=== PATIENT | male | born 1995 | race Two or more races ===

== ENCOUNTER 2025-04-06 20:02 | Emergency (ER) | payer MEDICAID, SELFPAY ==
[2025-04-06 20:03] VITALS: BMI 33.2
[2025-04-06 20:28] VITALS: BP 154/73; PULSE 92; RESP 18; TEMP 37.1; O2SAT 97
--- NOTE | 2025-04-06 21:01 | PD.EDABDPN ---
ED Abdominal Pain RME/HPI General Chief Complaint: Abdominal Pain Stated complaint: UPPER ABDOMINAL PAIN, DIARRHEA Time seen by provider: 04/06/25 20:29 Arrival date/time: 04/06/25 20:02 Source: patient Mode of arrival: ambulatory Limitations: no limitations RME / HPI RME / HPI narrative: 29-year-old male presents to the ED with a 3-day complaint of epigastric and right upper quadrant abdominal pain with associated nausea and diarrhea. Nothing makes the pain worse, Pepto-Bismol helps minimally. He denies any fever or chills, upper respiratory complaints, vomiting or constipation. He denies any association with food. No others are ill with similar symptoms. He denies any family history of cholecystitis. He denies any gastroesophageal reflux symptoms. Related Data Previous Rx's ?Medication ?Instructions ?Recorded bacitracin 500 unit/gram topical 1 applic topical QDAY #30 grams 11/05/23 ointment famotidine 40 mg tablet 40 mg PO QDAY #30 tabs 04/07/25 ondansetron 4 mg disintegrating 4 mg PO Q6H PRN nausea and 04/07/25 tablet vomiting #10 tabs pantoprazole 40 mg tablet,delayed 40 mg PO QDAY #30 tabs 04/07/25 release Allergies Allergy/AdvReac Type Severity Reaction Status Date / Time cefprozil Allergy Verified 04/06/25 20:06 clindamycin Allergy Verified 04/06/25 20:06 tobramycin Allergy Verified 04/06/25 20:06 Review of Systems Review of Systems Systems Reviewed: All systems reviewed, normal except as documented Past Medical History Social History SMOKING STATUS: Never smoker ED Exam Narrative Physical exam: Alert and oriented 29-year-old male, no acute distress, lungs are clear, regular rate and rhythm without murmurs, mild epigastric and right upper quadrant abdominal tenderness. No rebound or guarding. No CVA tenderness. General Limitations: Present no limitations General appearance: Present alert and in no apparent distress Course Course Course Narrative: 29-year-old male presents to the ED with a 3-day complaint of epigastric and right upper quadrant abdominal pain with associated nausea and diarrhea. Nothing makes the pain worse, Pepto-Bismol helps minimally. He denies any fever or chills, upper respiratory complaints, vomiting or constipation. He denies any association with food. No others are ill with similar symptoms. He denies any family history of cholecystitis. He denies any gastroesophageal reflux symptoms. Alert and oriented 29-year-old male, no acute distress, lungs are clear, regular rate and rhythm without murmurs, mild epigastric and right upper quadrant abdominal tenderness. No rebound or guarding. No CVA tenderness. Quality Measures none Orders Category Date Time Status NPO STAT Care 04/06/25 21:03 Completed US abdomen limited Stat Exams 04/06/25 21:03 Completed Amylase Stat Lab 04/06/25 21:16 Completed CBC Stat Lab 04/06/25 21:16 Completed Comprehensive Metabolic Panel Stat Lab 04/06/25 21:16 Completed Lipase Stat Lab 04/06/25 21:16 Completed Urinalysis Stat Lab 04/06/25 21:08 Completed Famotidine [Pepcid] Med 04/07/25 01:21 Discontinued 40 mg PO X1 ONE Lidocaine 2% Viscous [Xylocaine 2% Viscous] Med 04/06/25 21:04 Discontinued 15 ml PO X1 ONE Ondansetron Odt [Zofran Odt] Med 04/06/25 21:04 Discontinued 4 mg PO X1 ONE Ondansetron Odt [Zofran Odt] Med 04/07/25 01:21 Discontinued 4 mg PO X1 ONE Pantoprazole [Protonix] Med 04/07/25 01:21 Discontinued 40 mg PO X1 ONE mg Hyd/Al Hyd/Rasheed Susp [Maalox Susp] Med 04/06/25 21:04 Discontinued 30 ml PO X1 ONE Vital Signs Vital signs: Vital Signs Temperature 98.7 F 04/06/25 20:28 Pulse Rate 92 04/06/25 20:28 Respiratory Rate 18 04/06/25 20:28 Blood Pressure 154/73 H 04/06/25 20:28 Pulse Oximetry (%) 97 04/06/25 20:28 Oxygen Delivery Method Room Air 04/06/25 20:28 Abdominal Pain MDM MDM Narrative MDM Narrative:: 29-year-old male presents to the ED with a 3-day complaint of epigastric and right upper quadrant abdominal pain with associated nausea and diarrhea. Nothing makes the pain worse, Pepto-Bismol helps minimally. He denies any fever or chills, upper respiratory complaints, vomiting or constipation. He denies any association with food. No others are ill with similar symptoms. He denies any family history of cholecystitis. He denies any gastroesophageal reflux symptoms. Alert and oriented 29-year-old male, no acute distress, lungs are clear, regular rate and rhythm without murmurs, mild epigastric and right upper quadrant abdominal tenderness. No rebound or guarding. No CVA tenderness. Labs reveal a normal white count of 8.2, normal H&H and platelets, CMP is normal with the exception of a glucose of 118. LFTs, amylase, lipase are all normal. Urinalysis reveals a specific gravity 1.035 with no bacteria. Abdominal ultrasound: Findings: Contracted gallbladder no definite stones. Common bile duct 0.3 cm. Pancreatic head 2.6 cm. 17.8 cm liver dimension smooth contour. Normal hepatopedal portal venous flow. Patent IVC. IMPRESSION: Repeat the gallbladder portion of the study with fasting . Patient data External records reviewed:: None Clinical information provided by:: patient Social determinants that could affect healthcare access:: none Patient has the following chronic illnesses:: None How is presenting disease/condition affected by chronic disease/condition?: no chronic disease Evaluation data The following diagnostics were reviewed and interpreted by me:: lab results and radiology exam(s) Lab and/or radiology exams considered but not ordered:: N/A Interpretation Summary: Abdominal ultrasound: Findings: Contracted gallbladder no definite stones. Common bile duct 0.3 cm. Pancreatic head 2.6 cm. 17.8 cm liver dimension smooth contour. Normal hepatopedal portal venous flow. Patent IVC. IMPRESSION: Repeat the gallbladder portion of the study with fasting . Medications / Prescriptions Medications or Prescriptions considered but not ordered:: N/A Medication administrations:: Medication Administration History Discontinued Medications Al Hydrox/Mg Hydrox/Simethicone (Mg Hyd/Al Hyd/Rasheed (Maalox Reg) Susp 30 Ml Udc) 30 ml PO X1 ONE Stop: 04/06/25 21:05 Last Admin: 04/06/25 21:23 Dose: 30 ml Documented By: Famotidine (Famotidine 20 Mg Tablet) 40 mg PO X1 ONE Stop: 04/07/25 01:22 Last Admin: 04/07/25 01:33 Dose: 40 mg Documented By: INEZ Lidocaine HCl (Lidocaine Viscous 2% 15 Ml Udc) 15 ml PO X1 ONE Stop: 04/06/25 21:05 Last Admin: 04/06/25 21:23 Dose: 15 ml Documented By: Ondansetron HCl (Ondansetron Odt 4 Mg Tabrap) 4 mg PO X1 ONE; Protocol Stop: 04/06/25 21:05 Last Admin: 04/06/25 21:20 Dose: 4 mg Documented By: Ondansetron HCl (Ondansetron Odt 4 Mg Tabrap) 4 mg PO X1 ONE; Protocol Stop: 04/07/25 01:22 Last Admin: 04/07/25 01:34 Dose: 4 mg Documented By: INEZ Pantoprazole Sodium (Pantoprazole 40 Mg Tablet) 40 mg PO X1 ONE Stop: 04/07/25 01:22 Last Admin: 04/07/25 01:33 Dose: 40 mg Documented By: INEZ Maalox 30 mL and viscous lidocaine 15 mL, as well as ondansetron 4 mg p.o. given initially with good results. Prior to discharge, patient was given Pepcid 40 mg p.o., pantoprazole 40 mg p.o., and an additional dose of ondansetron 4 mg p.o. Consultations Consultation(s) initiated? (list below): No Diagnosis Differential diagnosis abdominal pain: abdominal pain, acute appendicitis, gastroenteritis, pancreatitis, small bowel obstruction and other (Cholecystitis, GERD, gastritis) Most likely diagnosis given after review of the tests above:: Gastritis, GERD Admission Indicated Admission indicated?: not indicated Explain why admission is indicated or not indicated:: Patient is stable for discharge Admission Request Was there a request for admission?: No Admission Attestation Admission request attestation: N/A Disposition Plan Disposition Plan: Discharge Discharge Attestation Discharge Attestation: The patient and all family members were given an opportunity to ask questions and understood the discharge instructions. Discharge instructions specifically effects, indications for sooner follow up or return to the emergency department, and the expected course of current diagnosis. Patient condition: Stable Discharge Plan Plan Patient Disposition: HOME (Self Care) Discharge Disposition comment: Stable and improved Prescriptions/Referrals Prescriptions/Med Rec: New pantoprazole 40 mg tablet,delayed release (DR/EC) 40 mg PO QDAY Qty: 30 0RF famotidine 40 mg tablet 40 mg PO QDAY Qty: 30 0RF ondansetron 4 mg tablet,disintegrating 4 mg PO Q6H PRN (Reason: nausea and vomiting) Qty: 10 0RF No Action bacitracin 500 unit/gram ointment 1 applic topical QDAY Qty: 30 0RF Referrals: No Primary/Family,Physician [Primary Care Provider] - In 1 week Problem List Clinical Impression: Gastritis, Abdominal pain Patient/Caregiver Discharge Instructions Education Materials: Abdominal Pain, ED Gastritis (Adult) Additional Instructions: Contact your primary care physician on Tuesday for follow-up appointment and referral for repeat ultrasound of the gallbladder. Follow-up with your primary care physician in 24 to 48 hours. Return to the ED for any new or worsening symptoms. Print Language: Bengali Stand Alone Forms: Shaniqua Award Info., Patient Portal Info Letter PA/TEMPLATE INSPECTOR Supervising Physician PA/TEMPLATE INSPECTOR Supervising Physician: Dr. Bruce
--- NOTE | 2025-04-06 21:03 | XR_ITS ---
Examination: Abdomen sonogram, Limited Date and time of exam: April 06, 2025 1004 hours INDICATIONS: Epigastric pain beginning 3 days ago Technique: Real-time caraballo scale transabdominal sonographic images of the upper abdomen obtained. Findings: Contracted gallbladder no definite stones Common bile duct 0.3 cm Pancreatic head 2.6 cm 17.8 cm liver dimension smooth contour Normal hepatopedal portal venous flow Patent IVC IMPRESSION: Repeat the gallbladder portion of the study with fasting
[2025-04-06] MEDS: ONDANSETRON ODT 4 MG TABRAP PO (21:20)
[2025-04-06] MEDS: MG HYD/AL HYD/SIME (Maalox Reg) SUSP 30 ML UDC PO (21:23)
[2025-04-06] MEDS: LIDOCAINE VISCOUS 2% 15 ML UDC PO (21:23)
[2025-04-06 21:38] LABS: Collection Type, Urine Clean Catch
[2025-04-06 21:43] LABS: Basophils # (Auto) 0.1 Thou/mm3 (0.0-0.2); Basophils % (Auto) 1 % (0-2.5); Eosinophils # (Auto) 0.2 Thou/mm3 (0.0-0.5); Eosinophils % (Auto) 3 % (0-10); Immature Granulocytes % (Auto) 0 % (0-0); Immature Granulocytes Auto 0.02 Thou/mm3 (0.00-0.00); Lymphocytes # (Auto) 2.3 Thou/mm3 (1.0-4.8); Lymphocytes % (Auto) 28 % (10-50); Mean Corpuscular HGB Conc 34.1 g/dl (31.0-37.0); Mean Corpuscular Hemoglobin 28.4 pg (25.0-35.0); Mean Corpuscular Volume 83 fL (80-100); Monocytes # (Auto) 0.7 Thou/mm3 (0.0-0.8); Monocytes % (Auto) 8 % (0-12); Neutrophils % (Auto) 61 % (37-80); Nucleated Red Blood Cell % 0 /100 WBC (0); Platelet Count 212 Thou/mm3 (140-440); RDW Standard Deviation 40.6 fL (35.1-43.9); Red Blood Count 4.93 Miln/mm3 (4.50-5.90); White Blood Count 8.2 Thou/mm3 (3.8-10.6)
[2025-04-06 21:59] LABS: Bilirubin,Urine Negative (Negative); Blood,Urine Negative (Negative); Clarity,Urine Clear (Clear/Hazy); Color,Urine Yellow (Lt Yel-Yel); Glucose, Urine Negative (Negative); Ketones,Urine Negative (Negative); Leukocyte Esterase,Urine Negative (Negative); Nitrite,Urine Negative (Negative); PH,Urine 6.5 (5.0-7.0); Protein,Urine Trace (Neg - Trace); RBC,Urine 1 /hpf (0-3); Specific Gravity,Urine 1.036 (1.001-1.035); Squamous Epithelial Cell,Urine < 1 /hpf (0-5); Urobilinogen,Urine Negative mg/dL (0.0-1.0); WBC,Urine < 1 /hpf (0-5)
[2025-04-06 22:25] LABS: Alanine Aminotransferase 39 U/L (10-49); Albumin, Serum 4.5 gm/dL (3.5-5.0); Alkaline Phosphatase 94 U/L (46-116); Anion Gap 8 (7-16); Aspartate Amino Transferase 24 U/L (0-34); BUN/Creatinine Ratio 13 Ratio (12-20); Bilirubin,Total 0.7 mg/dL (0.3-1.2); Blood Urea Nitrogen 10 mg/dL (9-23); Calcium 9.3 mg/dL (8.3-10.6); Calcium (Corrected) 9.3 mg/dL (8.5-10.1); Carbon Dioxide 29.1 mMol/L (20.0-31.0); Chloride 101 mMol/L (98-107); Creatinine (Component) 0.8 mg/dL (0.6-1.3); Estimated Creatinine Clearance 163.3 mL/min (>60); Globulin 2.3 gm/dL (2.3-3.5); Glucose 118 mg/dL (74-106); Lipase 42 U/L (12-53); Osmolality,Calculated 275 (275-295); Potassium 3.8 mMol/L (3.4-5.1); Sodium 138 mMol/L (136-145); Total Protein 6.8 gm/dL (5.7-8.2); eGFR > 60 See Note
[2025-04-06 22:40] LABS: Amylase 40 U/L (30-118)
[2025-04-07] MEDS: PANTOPRAZOLE 40 MG TABLET PO (01:33)
[2025-04-07] MEDS: FAMOTIDINE 20 MG TABLET 40 MG PO (01:33)
[2025-04-07] MEDS: ONDANSETRON ODT 4 MG TABRAP PO (01:34)
== END 2025-04-07 01:38 | disposition home or self-care (01) ==
PROVIDERS: Physician Assistant; Emergency Provider Emergency Medicine
DX: K29.70 Gastritis, unspecified, without bleeding (principal)
CPT/HCPCS: 36415; 76705; 80053; 81001; 82150; 83690; 85025; 99284; J3490; Q0162; A9270

== ENCOUNTER 2025-04-15 01:06 | Emergency (ER) | payer MEDICAID, SELFPAY ==
[2025-04-15 01:09] VITALS: BMI 31.5
[2025-04-15 01:15] VITALS: BP 136/87; PULSE 79; RESP 18; TEMP 37.1; O2SAT 96
[2025-04-15] MEDS: DiphenhydrAMINE INJ 50 MG/ML VIAL IM (01:36)
[2025-04-15] MEDS: MethylPREDNISolone SOD SUCC 62.5 MG/ML 2ML VIAL 125 MG IM (01:36)
[2025-04-15] MEDS: FAMOTIDINE 20 MG TABLET 40 MG PO (01:36)
--- NOTE | 2025-04-15 02:36 | EDNOTE_ITS ---
ED Allergic Reaction RME/HPI General Chief complaint: Allergic Reaction Stated complaint: poss allergic reaction lip swelling Time Seen by Provider: 04/15/25 01:27 Source: patient Arrival date/time: 04/15/25 01:06 This is a case of 29-year-old male who came into the emergency room due to generalized urticarial rash chest with mildly swelling of the lower lip after eating sushi at 11 PM patient can speak full sentences no drooling of saliva no shortness of breath Limitations: no limitations Related Data Previous Rx's ?Medication ?Instructions ?Recorded bacitracin 500 unit/gram topical 1 applic topical QDAY #30 grams 11/05/23 ointment famotidine 40 mg tablet 40 mg PO QDAY #30 tabs 04/07 ondansetron 4 mg disintegrating 4 mg PO Q6H PRN nausea and 04/07/25 tablet vomiting #10 tabs pantoprazole 40 mg tablet,delayed 40 mg PO QDAY #30 ta bs 04/07/25 release diphenhydramine HCl 25 mg capsule 25 mg PO TID PRN all ergic reaction 04/15/25 (Benadryl) #20 caps epinephrine 0.3 mg/0.3 mL 0.3 ml subcut DAILY As neede d for 04/15/25 injection, auto-injector (EpiPen) allergy symptoms #2 ea famotidine 20 mg tablet (Pepcid) 20 mg PO BID 5 days # 10 tabs 04/15/25 prednisone 20 mg tablet See Taper PO QDAY 5 days #5 tabs 04/15/25 Allergies Allergy/AdvReac Type Severity Reaction Status Date / Time cefprozil Allergy Verified 04/15/25 01:14 clindamycin Allergy Verified 04/15/25 01:14 tobramycin Allergy Verified 04/15/25 01:14 Review of Systems Review of Systems Systems Reviewed: All systems reviewed, normal except as documented Constitutional Constitutional: Reports system reviewed and no additional complaints, except as documented and Reports as per HPI Cardiovascular Cardiovascular: Reports system reviewed and no additional complaints, except as documented, Reports as per HPI, Denies chest pain, Denies chest pain at rest, Denies chest pain with activity and Denies dyspnea Respiratory Respiratory: Reports system reviewed and no additional complaints, except as documented, Reports as per HPI, Denies chest congestion, Denies cough and Denies dyspnea Gastrointestinal Gastrointestinal: Reports system reviewed and no additional complaints, except as documented and Reports as per HPI Musculoskeletal Musculoskeletal: Reports system reviewed and no additional complaints, except as documented and Reports as per HPI Integumentary/Breasts Skin/Breast: Reports system reviewed and no additional complaints, except as documented, Reports as per HPI and Reports other (Rash) Neurologic Neurologic: Reports system reviewed and no additional complaints, except as documented and Reports as per HPI Past Medical History Social History SMOKING STATUS: Never smoker ED Exam General Limitations: Present no limitations General appearance: Present alert and in no apparent distress; Absent appears intoxicated, anxious or lethargic Head Head exam: Present atraumatic, normocephalic and normal inspection Eye Eye exam: Present normal appearance, PERRL and EOMI ENT ENT exam: Present normal exam, normal oropharynx, mucous membranes moist, TM's normal bilaterally and other (Noted mild swelling of the lower lip noted throat or facial swelling patient has no drooling of saliva patient can speak full sentences tonsils were normal) Neck Neck exam: Present normal inspection, full ROM and trachea midline; Absent tenderness, meningismus, lymphadenopathy or thyromegaly Chest Chest inspection: Present normal inspection and symmetric chest wall rise Respiratory Respiratory exam: Present normal lung sounds bilaterally; Absent respiratory distress, wheezes, stridor, accessory muscle use or prolonged expiratory phase Cardiovascular Cardiovascular exam: Present regular rate, normal rhythm and normal heart sounds; Absent bradycardia, tachycardia, irregular rhythm, systolic murmur or diastolic murmur Abdominal Exam Abdominal exam: Present soft and normal bowel sounds Extremities Exam Extremities exam: Present normal inspection, full ROM and normal capillary refill; Absent tenderness Back Exam Back exam: Present normal inspection and full ROM Neurological Exam Neurological exam: Present alert, oriented X3, CN II-XII intact, normal gait and reflexes normal; Absent motor sensory deficit Psychiatric Psychiatric exam: Present normal affect and normal mood Skin Skin exam: Present warm, dry, intact, normal color and other (Noted generalized maculopapular urticarial rashes nonblanching no infection not infected no cellulitis) Course Quality Measures none Orders Category Date Time Status DiphenhydrAMINE INJ [Benadryl Inj] Med 04/15/25 01:27 Discontinued 50 mg IM X1 ONE Famotidine [Pepcid] Med 04/15/25 01:27 Discontinued 40 mg PO X1 ONE MethylPREDNISolone.* [SoluMEDROL Inj] Med 04/15/25 01:27 Discontinued 125 mg IM X1 ONE Vital Signs Vital signs: Vital Signs Temperature 98.8 F 04/15/25 01:15 Pulse Rate 79 04/15/25 01:15 Respiratory Rate 18 04/15/25 01:15 Blood Pressure 136/87 H 04/15/25 01:15 Pulse Oximetry (%) 96 04/15/25 01:15 Oxygen Delivery Method Room Air 04/15/25 01:15 Patient is afebrile not tachycardic not tachypneic BP stable not hypoxic oxygen saturation is 96% in room air Allergic Reaction MDM Narrative MDM Narrative:: This is a case of 29-year-old male who came into the emergency room due to generalized urticarial rash chest with mildly swelling of the lower lip after eating sushi at 11:00 PM patient can speak full sentences no drooling of saliva no shortness of breath patient is awake alert oriented not in distress nontoxic looking patient vital signs stable BP stable not tachycardic not tachypneic afebrile and nonhypoxic patient lung sound is clear no crackles no rales no retraction no stridor HEENT exam normal except mild swelling of the left lower lip no facial or throat swelling no drooling of saliva patient can speak full sentences patient noted to have urticarial maculopapular rashes on both upper arm both lower extremities chest abdomen and back based on my physical examination and history patient symptoms suggestive of acute allergic reaction patient has no signs and symptoms of angioedema or anaphylaxis patient was given Solu-Medrol IM Benadryl IM and Pepcid patient was reassessed after 1 hour rashes resolved the swelling on the lower lip markedly subsided at this point no facial or no throat swelling lungs sound is clear no hypoxia patient will be discharged home in stable condition patient was prescribed with EpiPen for acute allergic reaction steroid to be started tomorrow Benadryl as needed for allergic reaction and Pepcid patient was advised to follow-up with PCP in 2 days for reevaluation and to be referred to lactation specialist for allergy testing for any recurrence worsening symptoms or any emergent concern he will return in the emergency room immediately or call 911 Patient was discharged with comfortable condition walking with stable gait. Patient verbalized no further complains explained diagnosis and answered patient question. Patient is comfortable with the proposed management plan including the need to follow up with his/her primary care physician and any specialist if applicable Discussed patient for any urgent condition or worsening sx, He/She needed to go to emergency room immediately or call 911. Patient acknowledge the responsibility to follow up as instructed and to monitor her/his symptoms. For any persistence of the symptoms for more than 3-5 days return precaution advised. Discussed the result of the test and was given printed discharge instruction Patient data External records reviewed:: [facility] previous records Clinical information provided by:: patient and family Social determinants that could affect healthcare access:: none Patient has the following chronic illnesses:: None How is presenting disease/condition affected by chronic disease/condition?: no chronic disease Evaluation data The following diagnostics were reviewed and interpreted by me:: other (specify) (none) Lab and/or radiology exams considered but not ordered:: None Interpretation Summary: None Medications / Prescriptions Medications or Prescriptions considered but not ordered:: Given Medication administrations:: Medication Administration History Discontinued Medications Diphenhydramine HCl (Diphenhydramine Inj 50 Mg/Ml Vial) 50 mg IM X1 ONE Stop: 04/15/25 01:28 Last Admin: 04/15/25 01:36 Dose: 50 mg Documented By: INEZ Famotidine (Famotidine 20 Mg Tablet) 40 mg PO X1 ONE Stop: 04/15/25 01:28 Last Admin: 04/15/25 01:36 Dose: 40 mg Documented By: INEZ Methylprednisolone Sodium Succinate (Methylprednisolone Sod Succ 62.5 Mg/Ml 2ml Vial) 125 mg IM X1 ONE Stop: 04/15/25 01:28 Last Admin: 04/15/25 01:36 Dose: 125 mg Documented By: INEZ Given Consultations Consultation(s) initiated? (list below): No Diagnosis Differential Diagnosis allergic reaction: anaphylaxis, allergic reaction and angioedema Most likely diagnosis given after review of the tests above:: Acute allergic reaction Admission Indicated Admission indicated?: not indicated Explain why admission is indicated or not indicated:: Not indicated Admission Request Was there a request for admission?: No Admission Attestation Admission request attestation: None Disposition Plan Disposition Plan: Discharge Discharge Attestation Discharge Attestation: The patient and all family members were given an opportunity to ask questions and understood the discharge instructions. Discharge instructions specifically effects, indications for sooner follow up or return to the emergency department, and the expected course of current diagnosis. Patient condition: Stable Discharge Plan Plan Patient Disposition: HOME (Self Care) Prescriptions/Referrals Prescriptions/Med Rec: New prednisone 20 mg tablet See Taper PO QDAY 5 Days Qty: 5 0RF Taper: Prednisone Taper 20 mg DAILY for 2 Days and 0 Hour 10 mg DAILY for 2 Days and 0 Hour 5 mg DAILY for 7 Days and 0 Hour epinephrine [EpiPen] 0.3 mg/0.3 mL auto-injector 0.3 ml subcut DAILY Qty: 2 0RF famotidine [Pepcid] 20 mg tablet 20 mg PO BID 5 Days Qty: 10 0RF diphenhydramine HCl [Benadryl] 25 mg capsule 25 mg PO TID PRN (Reason: allergic reaction) Qty: 20 0RF No Action bacitracin 500 unit/gram ointment 1 applic topical QDAY Qty: 30 0RF pantoprazole 40 mg tablet,delayed release (DR/EC) 40 mg PO QDAY Qty: 30 0RF famotidine 40 mg tablet 40 mg PO QDAY Qty: 30 0RF ondansetron 4 mg tablet,disintegrating 4 mg PO Q6H PRN (Reason: nausea and vomiting) Qty: 10 0RF Referrals: No Primary/Family,Physician [Primary Care Provider] - In 1 week Problem List Clinical Impression: Acute allergic reaction Patient/Caregiver Discharge Instructions Education Materials: ED Medicine Reaction: Allergic, ED Food Allergy Additional Instructions: Follow-up with your primary care physician in 2 days for reevaluation and to be referred to lactation specialist for allergy testing recurrence worsening symptoms persistence in symptoms or any emergent concern return to the emergency room immediately or call 911 take your medication as directed Print Language: Grenadian Stand Alone Forms: Shaniqua Award Info., Patient Portal Info Letter PA/GUEST SPECIALIST Supervising Physician PA/GUEST SPECIALIST Supervising Physician: dr staley
== END 2025-04-15 03:09 | disposition home or self-care (01) ==
PROVIDERS: Emergency Provider Emergency Medicine
DX: T78.40XA Allergy, unspecified, initial encounter (principal)
CPT/HCPCS: 96372; 99283; J1200; J2919; A9270